=== PATIENT | female | born 1955 | race Caucasian/White ===

== ENCOUNTER 2020-05-18 10:37 | Emergency (ER) | payer OTHER ==
[2020-05-18] MEDS ORDERED: Lidocaine 1% 20 ML MDV ONE (10:58)
[2020-05-18] MEDS ORDERED: Lidocaine 1% 20 ML MDV INJECT ONE (11:15)
--- NOTE | 2020-05-18 11:19 | EDM.PDOC ---
ED HPI GENERAL MEDICAL PROBLEM - General Chief Complaint: Laceration Stated Complaint: laceration left index finger Time Seen by Provider: 05/18/20 10:57 Source of Information: Reports: Patient History Limitations: Reports: No Limitations - History of Present Illness INITIAL COMMENTS - FREE TEXT/NARRATIVE: Presents emergency room for left index finger laceration which occurred with a table saw. She was doing woodworking with a table saw and her left index finger came in contact with a running table saw blade. Distal tip index finger laceration it is intact however there is a stellate lacertion and part of skin missing from the site. Tetanus shots been almost 9 years. Hemostasis achieved with direct pressure prior to arrival. Pain is sharp, 5 out of 10 at this time. This happened just prior to arrival. No other injury. Left Finger-Index Pain Score (Numeric/FACES): 5 - Related Data Allergies Allergy/AdvReac Type Severity Reaction Status Date / Time naproxen Allergy Itching Verified 05/18/20 11:05 Home Meds: Home Meds Calcium Carbonate/Vitamin D3 [Calcium 600Mg-D3 400 Unit Sfgl] 1 tab PO DAILY 03/14/20 [History] Cyclobenzaprine [Flexeril] 5 mg PO DAILY PRN 03/14/20 [History] Doxycycline [Vibra-Tabs] 50 mg PO DAILY 03/14/20 [History] Gabapentin [Neurontin] 600 mg PO BID 03/14/20 [History] Glucosam/Chond/Collagen/Hyalur [Glucosamine Chondroitin] 1 tab PO DAILY 03/14/20 [History] Hydrochlorothiazide/Losartan [Hyzaar 50-12.5 MG] 1 tab PO DAILY 03/14/20 [History] Ibuprofen 800 mg PO BID PRN 03/14/20 [History] [place]-3 Fatty Acids [[place]-3] 1 tab PO DAILY 03/14/20 [History] Pantoprazole Sodium [Protonix] 40 mg PO DAILY 03/14/20 [History] Vitamin B Complex [B Complex] 1 tab PO DAILY 03/14/20 [History] traMADol [Ultram] 50 mg PO DAILY PRN 03/14/20 [History] DULoxetine HCl [Duloxetine HCl] 30 mg PO BEDTIME 90 Days #90 capsule. 03/22/20 [Rx] cephALEXin [Keflex] 500 mg PO TID 5 Days #15 capsule 05/18/20 [Rx] Past Medical History HEENT History: Reports: Hard of Hearing Cardiovascular History: Reports: Heart Murmur, Hypertension Gastrointestinal History: Reports: GERD Musculoskeletal History: Reports: Other (See Below) Other Musculoskeletal History: compression fracture of lumar vertebra, spinal stenosis Endocrine/Metabolic History: Reports: Obesity/BMI 30+, Other (See Below) Other Endocrine/Metabolic History: right thyroid nodule - Past Surgical History HEENT Surgical History: Reports: Other (See Below) Other HEENT Surgeries/Procedures: rhinoplasty Female Surgical History: Reports: Breast Biopsy Musculoskeletal Surgical History: Reports: Arthroscopic Knee, Shoulder Surgery, Other (See Below) Other Musculoskeletal Surgeries/Procedures:: cyst excision left ringer finger and thumb Social & Family History - Family History Cardiac: Reports: Heart Failure, Hypertension Other Cardiac Family History: heart failure- sister. hypertension- sister, brother x 3. heart disease- mathernal grandfather, brother Oncologic: Reports: Breast, Ovarian, Pancreatic, Skin Other Oncologic Family History: breast- mathernal grandmother. skin- brother. pancreatic- brother. 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 Skin: Reports: Wound ED EXAM, SKIN/RASH Exam: See Below Exam Limited By: No Limitations General Appearance: Alert, WD/WN, No Apparent Distress Head: Atraumatic, Normocephalic Neck: Normal Inspection, Supple Peripheral Pulses: 2+: Radial (L), Radial (R) Extremities: Normal Inspection, Normal Range of Motion, Other (left index finger lacertion, steleatte laceration with some skin missing to distal tip.) Neurological: Alert, Oriented Psychiatric: Normal Affect, Normal Mood Skin: Warm, Dry, Wound/Incision (2.5 cm laceration distal tip. ) ED SKIN PROCEDURES - Laceration/Wound Repair Left Distal Digit - 2nd (Index) Appearance: Stellate, Irregular, Mildly Contaminated Distal NVT: Neuro & Vascular Intact Local Anesthesia - Lidocaine (Xylocaine): 1% Plain Local Anesthetic Volume: Other (7) Saline Irrigation (cc's): 250 Exploration/Debridement/Repair: Wound Explored, In a Bloodless Field, Minimal Debridement, Moderately Undermined, No Foreign Material Found, Multiple Flaps Aligned Closed with: Sutures Lac/Wound length In cm: 2.5 Suture Size: 4-0 # of Sutures: 6 Suture Type: Nylon Course - Vital Signs Last Recorded V/S: Last Vital Signs Temp 98.6 F 05/18/20 10:45 Pulse 96 05/18/20 10:45 Resp 18 05/18/20 10:45 BP 148/104 H 05/18/20 10:45 Pulse Ox 98 05/18/20 10:45 - Orders/Labs/Meds Orders: Active Orders 24 hr Category Date Time Status Vaccines to be Administered [RC] PER UNIT ROUTINE Care 05/18/20 11:33 Active Bacitracin [Bacitracin Oint] Med 05/18/20 14:00 Active 28 gm TOP TID Medication Orders Bacitracin (Bacitracin Oint) 28 gm TOP TID SOLEDAD Meds: Medications Generic Name Dose Route Start Last Admin Trade Name Freq PRN Reason Stop Dose Admin Bacitracin 28 gm 05/18/20 14:00 Bacitracin Oint TOP TID SOLEDAD Discontinued Medications Generic Name Dose Route Start Last Admin Trade Name Freq PRN Reason Stop Dose Admin Diphtheria/Tetanus/Acell Pertussis 0.5 ml 05/18/20 11:32 Adacel IM 05/18/20 11:33 .ONCE ONE Lidocaine HCl Confirm 05/18/20 10:58 Xylocaine 1% Administered 05/18/20 10:59 Dose 20 ml .ROUTE .STK-MED ONE Lidocaine HCl 20 ml 05/18/20 11:15 Xylocaine 1% INJECT 05/18/20 11:16 ONETIME ONE Departure - Departure Time of Disposition: 11:47 Disposition: Home, Self-Care 01 Condition: Good Clinical Impression: Laceration of index finger of left hand without complication Qualifiers: Encounter type: initial encounter Qualified Code(s): S61.211A - Laceration without foreign body of left index finger without damage to nail, initial en counter - Discharge Information *PRESCRIPTION DRUG MONITORING PROGRAM REVIEWED*: No *COPY OF PRESCRIPTION DRUG MONITORING REPORT IN PATIENT KEILA: No Prescriptions: cephALEXin [Keflex] 500 mg PO TID 5 Days #15 capsule Instructions: Laceration Care, Adult, Sutures, Gabriel, or Adhesive Wound Closure Referrals: Alice David MD [Primary Care Provider] - Forms: ED Department Discharge Additional Instructions: follow up at the clinic here in 12 days for suture removal follow up with a hand surgeon next week for recheck to ensure no tendons were involved. Sepsis Event Note (ED) - Evaluation Sepsis Screening Result: No Definite Risk - Focused Exam Vital Signs: Vital Signs Temp Pulse Resp BP Pulse Ox 05/18/20 10:45 98.6 F 96 18 148/104 H 98 - My Orders Last 24 Hours: My Active Orders 05/18/20 11:33 Vaccines to be Administered [RC] PER UNIT ROUTINE 05/18/20 14:00 Bacitracin [Bacitracin Oint] 28 gm TOP TID - Assessment/Plan Last 24 Hours: My Active Orders 05/18/20 11:33 Vaccines to be Administered [RC] PER UNIT ROUTINE 05/18/20 14:00 Bacitracin [Bacitracin Oint] 28 gm TOP TID
[2020-05-18] MEDS ORDERED: Diphtheria,Pertussis(Acell),Tetanus Vaccine 0.5 ML SDV IM ONE (11:32)
--- NOTE | 2020-05-18 11:46 | CR ---
[id number] RAD/RAD Fingers Left EXAM: RAD Fingers Left CLINICAL DATA: TRAUMA COMPARISON: NO PREVIOUS SIMILAR EXAM IS AVAILABLE. FINDINGS: Soft tissue injury is seen in the volar soft tissues of the distal left second phalanx. IMPRESSION: SOFT TISSUE INJURY ONLY Kenney Eid MD 05/18/20 [id number] Thank you for allowing us to participate in the care of your patient.
[2020-05-18] MEDS ORDERED: Bacitracin Oint 30 GM Tube TOP SCH (14:00)
== END 2020-05-18 12:00 | disposition home or self-care (01) ==
LOC: KA.ED 10:37
DX: S61.211A Laceration without foreign body of left index finger without damage to nail, initial encounter (principal); I10 Essential (primary) hypertension; K21.9 Gastro-esophageal reflux disease without esophagitis; E66.9 Obesity, unspecified; Z23 Encounter for immunization; Z88.6 Allergy status to analgesic agent; Z79.899 Other long term (current) drug therapy; Z68.36 Body mass index [BMI] 36.0-36.9, adult; W31.2XXA Contact with powered woodworking and forming machines, initial encounter
CPT/HCPCS: 12001; 73140-F1; 90471; 90715; 99283; 99283-25; J2001

== ENCOUNTER 2020-06-09 20:48 | Emergency (ER) | payer OTHER ==
[2020-06-09] MEDS ORDERED: Sodium Chloride 0.9% 10 ML Syringe FLUSH PRN (21:14)
[2020-06-09] MEDS ORDERED: cefTRIAXone 1 GM Vial IVPUSH ONE (21:29)
[2020-06-09] MEDS ORDERED: Sodium Chloride 0.9% 100 ML ONE (21:52)
--- NOTE | 2020-06-09 22:06 | EDM.PDOC ---
ED HPI GENERAL MEDICAL PROBLEM - General Chief Complaint: General Stated Complaint: ? Left index finger infection Time Seen by Provider: 06/09/20 21:10 Source of Information: Reports: Patient, Old Records History Limitations: Reports: No Limitations, Other - History of Present Illness INITIAL COMMENTS - FREE TEXT/NARRATIVE: 65-year-old female presents to the emergency room for possible left finger infection status post index FDP laceration repair. Patient sustained a saw injury to the finger on May 18 and underwent repair of her FDP left index finger on 06/02/[address] Ethan Nash. And notes increasing discomfort last night with interrupted sleep and increased swelling and drainage coming from her incision since yesterday. She denies fever or chills. She notices increasing pain discomfort in the left index finger extending down to the MCP joint. Presents to the emergency room for further evaluation. Onset Date: 06/08/20 Duration: Hour(s):, Getting Worse Location: Reports: Upper Extremity, Left (Left index finger) Quality: Reports: Burning, Pressure Severity: Moderate Improves with: Reports: None Worsens with: Reports: Movement Associated Symptoms: Denies: Fever/Chills, Nausea/Vomiting Left Hand Pain Score (Numeric/FACES): 7 - Related Data Allergies Allergy/AdvReac Type Severity Reaction Status Date / Time naproxen Allergy Itching Verified 06/09/20 20:55 Home Meds: Home Meds Calcium Carbonate/Vitamin D3 [Calcium 600Mg-D3 400 Unit Sfgl] 1 tab PO DAILY 03/14/20 [History] Cyclobenzaprine [Flexeril] 5 mg PO DAILY PRN 03/14/20 [History] Doxycycline [Vibra-Tabs] 50 mg PO DAILY 03/14/20 [History] Gabapentin [Neurontin] 600 mg PO BID 03/14/20 [History] Glucosam/Chond/Collagen/Hyalur [Glucosamine Chondroitin] 1 tab PO DAILY 03/14/20 [History] Hydrochlorothiazide/Losartan [Hyzaar 50-12.5 MG] 1 tab PO DAILY 03/14/20 [History] Ibuprofen 800 mg PO BID PRN 03/14/20 [History] [place]-3 Fatty Acids [[place]-3] 1 tab PO DAILY 03/14/20 [History] Pantoprazole Sodium [Protonix] 40 mg PO DAILY 03/14/20 [History] Vitamin B Complex [B Complex] 1 tab PO DAILY 03/14/20 [History] traMADol [Ultram] 50 mg PO DAILY PRN 03/14/20 [History] DULoxetine HCl [Duloxetine HCl] 30 mg PO BEDTIME 90 Days #90 capsule. 03/22/20 [Rx] cephALEXin [Keflex] 500 mg PO TID 5 Days #15 capsule 05/18/20 [Rx] oxyCODONE 5 mg PO Q4H PRN 06/09/20 [History] Past Medical History HEENT History: Reports: Hard of Hearing Cardiovascular History: Reports: Heart Murmur, Hypertension Gastrointestinal History: Reports: GERD Musculoskeletal History: Reports: Other (See Below) Other Musculoskeletal History: compression fracture of lumar vertebra, spinal stenosis Endocrine/Metabolic History: Reports: Obesity/BMI 30+, Other (See Below) Other Endocrine/Metabolic History: right thyroid nodule - Past Surgical History HEENT Surgical History: Reports: Other (See Below) Other HEENT Surgeries/Procedures: rhinoplasty Female Surgical History: Reports: Breast Biopsy Musculoskeletal Surgical History: Reports: Arthroscopic Knee, Shoulder Surgery, Other (See Below) Other Musculoskeletal Surgeries/Procedures:: cyst excision left ringer finger and thumb Social & Family History - Family History Cardiac: Reports: Heart Failure, Hypertension Other Cardiac Family History: heart failure- sister. hypertension- sister, brother x 3. heart disease- mathernal grandfather, brother Oncologic: Reports: Breast, Ovarian, Pancreatic, Skin Other Oncologic Family History: breast- mathernal grandmother. skin- brother. pancreatic- brother. 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.) ED ROS GENERAL - Review of Systems Review Of Systems: See Below Constitutional: Denies: Fever, Chills HEENT: Reports: Glasses Respiratory: Reports: No Symptoms Cardiovascular: Reports: No Symptoms Endocrine: Reports: No Symptoms GI/Abdominal: Reports: No Symptoms : Reports: No Symptoms Musculoskeletal: Reports: Hand Pain (left hand/index finger) Skin: Reports: Erythema, Wound (serous drainage), Other (Radiation of the skin overlying the DIP joint left index finger palmar side) Neurological: Reports: Tingling Psychiatric: Reports: No Symptoms Hematologic/Lymphatic: Reports: No Symptoms Immunologic: Reports: No Symptoms ED EXAM, GENERAL - Physical Exam Exam: See Below Exam Limited By: No Limitations General Appearance: Alert, WD/WN, No Apparent Distress Head: Atraumatic, Normocephalic Respiratory/Chest: No Respiratory Distress Extremities: Joint Swelling, Increased Warmth, Redness, Other (Mild serous drainage is coming from the laceration incision repair left index finger. She has increased pain to palpation where there is some serous drainage expressed. She has some tenderness extending down the finger at the MCP joint but no tenderness in the palm there is swelling dorsally over the hand but again no increased discomfort to palpation. There is no streaking noticed up the arm.) Neurological: Alert, Oriented, No Motor/Sensory Deficits Psychiatric: Normal Affect, Normal Mood Skin Exam: Increased Warmth, Wound/Incision (Left index finger), Other (Maceration of the skin left index finger at the DIP joint) Course - Vital Signs Last Recorded V/S: Last Vital Signs Temp 99.5 F 06/09/20 22:08 Pulse 83 06/09/20 22:31 Resp 20 06/09/20 22:31 BP 157/106 H 06/09/20 22:31 Pulse Ox 99 06/09/20 22:31 - Orders/Labs/Meds Orders: Active Orders 24 hr Category Date Time Status Peripheral IV Care [RC] . DIRECTED Care 06/09/20 21:14 Active Fingers Second Digit Lt F1 [CR] Stat Exams 06/09/20 22:03 Ordered MISCELLANEOUS CULT [MREF] Stat Lab 06/09/20 21:26 Received Sodium Chloride 0.9% [Saline Flush] Med 06/09/20 21:14 Active 10 ml FLUSH Q8HR PRN Vancomycin 1.5 gm Med 06/09/20 21:30 Active Sodium Chloride 0.9% [Normal Saline] 250 ml IV Q24H Peripheral IV Insertion Adult [OM.PC] Routine Oth 06/09/20 20:55 Ordered Medication Orders Vancomycin HCl 1.5 gm/ Sodium (Chloride) 250 mls @ 167 mls/hr IV Q24H SOLEDAD Last Admin: 06/09/20 21:50 Dose: 167 mls/hr Documented by: MALOU Sodium Chloride (Saline Flush) 10 ml FLUSH Q8HR PRN PRN Reason: keep vein open Labs: Laboratory Tests 06/09/20 06/09/20 Range/Units 21:00 21:00 WBC 9.83 (5.00-10.00) 10^3/uL RBC 4.60 (3.80-5.50) 10^6/uL Hgb 14.1 (12.0-16.0) g/dL Hct 41.6 (37.0-47.0) % MCV 90.4 (82.0-92.0) fL MCH 30.7 (27.0-31.0) pg MCHC 33.9 (32.0-36.0) g/dL RDW 12.3 (11.5-14.5) % Plt Count 260 (150-400) 10^3/uL MPV 10.4 (7.4-10.4) fL Immature Gran % (Auto) 0.1 (0.0-5.0) % Neut % (Auto) 71.2 H (50.0-70.0) % Lymph % (Auto) 19.2 L (20.0-40.0) % Tift % (Auto) 8.5 H (2.0-8.0) % Eos % (Auto) 0.5 L (1.0-3.0) % Baso % (Auto) 0.5 (0.0-1.0) % Neut # (Auto) 6.99 (2.50-7.00) 10^3/uL Lymph # (Auto) 1.89 (1.00-4.00) 10^3/uL [place] # (Auto) 0.84 H (0.10-0.80) 10^3/uL Eos # (Auto) 0.05 L (0.10-0.30) 10^3/uL Baso # (Auto) 0.05 (0.00-0.10) 10^3/uL Immature Gran # (Auto) 0.01 (0.00-0.50) 10^3/uL C-Reactive Protein 3.7 H (0.0-0.9) mg/dL Meds: Medications Generic Name Dose Route Start Last Admin Trade Name Freq PRN Reason Stop Dose Admin Vancomycin HCl 1.5 gm/ Sodium 250 mls @ 167 mls/hr 06/09/20 21:30 06/09/20 21:50 Chloride IV 167 mls/hr Q24H SOLEDAD Administration Sodium Chloride 10 ml 06/09/20 21:14 Saline Flush FLUSH Q8HR PRN keep vein open Discontinued Medications Generic Name Dose Route Start Last Admin Trade Name [place] PRN Reason Stop Dose Admin Ceftriaxone Sodium 1 gm 06/09/20 21:29 06/09/20 21:40 Rocephin IVPUSH 06/09/20 21:30 1 gm ONETIME ONE Administration Sodium Chloride Confirm 06/09/20 21:52 06/09/20 21:59 Normal Saline Administered 06/09/20 21:53 125 mls/hr Dose Administration 100 mls @ as directed .ROUTE .[facility] ONE - Radiology Interpretation Free Text/Narrative:: 3 views left second digit There is fusiform soft tissue swelling without evidence of soft tissue laceration ulceration. No acute fracture or dislocation. 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 Cultures left index finger obtained. Gram stain, aerobic, anaerobic cultures Will be given 1.5 g of vancomycin and 1 g of Rocephin IV. Departure - Departure Time of Disposition: 00:05 Disposition: DC/Tfer to [facility] Access 66 Condition: Good Clinical Impression: Infected puncture wound of left index finger Qualifiers: Encounter type: initial encounter Qualified Code(s): S61.231A - Puncture wound without foreign body of left index finger without damage to nail, initial encounter Flexor tendon laceration of finger with open wound Qualifiers: Encounter type: subsequent encounter Qualified Code(s): S56.129D - Laceration of flexor muscle, fascia and tendon of unspecified finger at forearm level, subsequent encounter - Discharge Information Referrals: Alice David MD [Primary Care Provider] - Forms: ED Department Discharge Sepsis Event Note (ED) - Evaluation Sepsis Screening Result: No Definite Risk - Focused Exam Vital Signs: Vital Signs Temp Pulse Resp BP Pulse Ox 06/09/20 22:31 83 20 157/106 H 99 06/09/20 22:16 80 20 180/101 H 97 06/09/20 22:08 99.5 F 81 20 184/103 H 96 06/09/20 22:01 80 20 176/100 H 97 06/09/20 21:45 81 20 168/96 H 97 06/09/20 21:30 86 20 155/97 H 96 06/09/20 21:03 87 20 169/98 H 96 06/09/20 21:01 97.7 F 90 18 166/99 H 99 - My Orders Last 24 Hours: My Active Orders 06/09/20 20:55 Peripheral IV Insertion Adult [OM.PC] Routine 06/09/20 21:14 Peripheral IV Care [RC] . DIRECTED Sodium Chloride 0.9% [Saline Flush] 10 ml FLUSH Q8HR PRN 06/09/20 21:26 MISCELLANEOUS CULT [MREF] Stat 06/09/20 21:30 Vancomycin 1.5 gm Sodium Chloride 0.9% [Normal Saline] 250 ml IV Q24H 06/09/20 22:03 Fingers Second Digit Lt F1 [CR] Stat - Assessment/Plan Last 24 Hours: My Active Orders 06/09/20 20:55 Peripheral IV Insertion Adult [OM.PC] Routine 06/09/20 21:14 Peripheral IV Care [RC] . DIRECTED Sodium Chloride 0.9% [Saline Flush] 10 ml FLUSH Q8HR PRN 06/09/20 21:26 MISCELLANEOUS CULT [MREF] Stat 06/09/20 21:30 Vancomycin 1.5 gm Sodium Chloride 0.9% [Normal Saline] 250 ml IV Q24H 06/09/20 22:03 Fingers Second Digit Lt F1 [CR] Stat Assessment:: 1. History of left index finger saw injury with delayed repair of the FDP. 2. Postoperative infection left index finger with possible tenosynovitis. Plan: 1. Cultures and lab work were drawn. Cultures include Gram stain, aerobic, anaerobic wound cultures. CBC with differential sed rate and CRP were ordered. 2. I talked with Dr. Ryan orthopedics from [facility], and patient was given the option for outpatient IV antibiotics with follow-up with orthopedics or proceed with inpatient antibiotics followed closely by orthopedics at [address] Patient is elected to proceed with definitive care at [place] [id number] in [place].
--- NOTE | 2020-06-10 07:11 | CR ---
[id number] RAD/RAD Fingers Left Exam: RAD Fingers Left Indication:INFLAMMATION OF SECOND FINGER Comparison: May 18, 2020. Discussion/Impression: Swelling throughout the 2nd digit. No acute erosive changes identified. No acute fracture or dislocation. Punctate mineralized structure in the soft tissues near the terminal tuft of the distal phalanx, nonspecific in etiology. Del Small MD 06/10/20 [id number] Thank you for allowing us to participate in the care of your patient.
== END 2020-06-09 23:55 | disposition critical access hospital (66) ==
LOC: KA.ED 20:48
DX: T81.49XA Infection following a procedure, other surgical site, initial encounter (principal); L08.9 Local infection of the skin and subcutaneous tissue, unspecified; I10 Essential (primary) hypertension; K21.9 Gastro-esophageal reflux disease without esophagitis; E66.9 Obesity, unspecified; Z68.34 Body mass index [BMI] 34.0-34.9, adult; Z88.8 Allergy status to other drugs, medicaments and biological substances; Z79.899 Other long term (current) drug therapy
CPT/HCPCS: 73140; 85025; 86140; 87070; 87205; 96365; 96366; 96375; 99285; J0696; J3370; J7050; 36415; 99284

== ENCOUNTER 2024-12-02 17:50 | Emergency (ER) | payer MEDICARE ==
[2024-12-02] MEDS ORDERED: Sodium Chloride 0.9% 10 ML Syringe FLUSH PRN (17:58)
[2024-12-02] MEDS: Ondansetron 4 MG/2 ML SDV IVPUSH ONE (18:05)
[2024-12-02] MEDS: HYDROmorphone 1 MG/ML Syringe IVPUSH ONE (18:06)
[2024-12-02] MEDS: LORazepam 2 MG/ML SDV IVPUSH ONE (18:36)
[2024-12-02] MEDS: Ketorolac 30 MG/ML SDV IVPUSH ONE (19:43)
[2024-12-02] MEDS: Acetaminophen/HYDROcodone 325-10 MG Tab PO ONE (20:10)
== END 2024-12-02 20:15 | disposition home or self-care (01) ==
LOC: KA.ED 17:50
DX: S42.212A Unspecified displaced fracture of surgical neck of left humerus, initial encounter for closed fracture (principal); I10 Essential (primary) hypertension; K21.9 Gastro-esophageal reflux disease without esophagitis; E66.9 Obesity, unspecified; Z88.8 Allergy status to other drugs, medicaments and biological substances; Z79.899 Other long term (current) drug therapy; Z68.36 Body mass index [BMI] 36.0-36.9, adult; W07.XXXA Fall from chair, initial encounter
CPT/HCPCS: 73030-LT; 73060-LT; 96374; 96375; 99283-25; A9270-GY; J1171; J1885; J2060; J2405